=== PATIENT | male | born 1930 | race Caucasian/White ===

== ENCOUNTER → 2017-03-08 | Outpatient (CLI) | payer OTHER | END | disposition home or self-care (01) | LOC: PCVCCLINIC 13:37 | PROVIDERS: ATTEND Internal Medicine | DX: I48.2 Chronic atrial fibrillation (principal); I42.9 Cardiomyopathy, unspecified; E78.5 Hyperlipidemia, unspecified; J43.2 Centrilobular emphysema; G47.33 Obstructive sleep apnea (adult) (pediatric); E11.22 Type 2 diabetes mellitus with diabetic chronic kidney disease; I12.9 Hypertensive chronic kidney disease with stage 1 through stage 4 chronic kidney disease, or unspecified chronic kidney disease; N18.9 Chronic kidney disease, unspecified; I77.89 Other specified disorders of arteries and arterioles; Z86.14 Personal history of Methicillin resistant Staphylococcus aureus infection; Z85.51 Personal history of malignant neoplasm of bladder; Z89.422 Acquired absence of other left toe(s); Z87.891 Personal history of nicotine dependence; Z79.01 Long term (current) use of anticoagulants; Z79.4 Long term (current) use of insulin; Z88.8 Allergy status to other drugs, medicaments and biological substances | CPT/HCPCS: 80061; 93005; G0463 ==

== ENCOUNTER → 2017-09-13 | Outpatient (CLI) | payer OTHER | END | disposition home or self-care (01) | LOC: PCVCCLINIC 12:56 | DX: I48.2 Chronic atrial fibrillation (principal); I42.0 Dilated cardiomyopathy; E78.5 Hyperlipidemia, unspecified; I10 Essential (primary) hypertension; J43.2 Centrilobular emphysema; G47.33 Obstructive sleep apnea (adult) (pediatric); E11.9 Type 2 diabetes mellitus without complications; R94.31 Abnormal electrocardiogram [ECG] [EKG]; Z79.01 Long term (current) use of anticoagulants; Z87.891 Personal history of nicotine dependence; Z79.899 Other long term (current) drug therapy; Z79.4 Long term (current) use of insulin | CPT/HCPCS: 80061; 93005; G0463 ==

== ENCOUNTER → 2018-03-14 | Outpatient (CLI) | payer OTHER | END | disposition home or self-care (01) | LOC: PCVCCLINIC 14:04 | DX: I48.2 Chronic atrial fibrillation (principal); I42.0 Dilated cardiomyopathy; I10 Essential (primary) hypertension; J43.2 Centrilobular emphysema; G47.33 Obstructive sleep apnea (adult) (pediatric); E11.9 Type 2 diabetes mellitus without complications; E78.5 Hyperlipidemia, unspecified; Z79.01 Long term (current) use of anticoagulants; Z79.899 Other long term (current) drug therapy; Z87.891 Personal history of nicotine dependence; Z88.8 Allergy status to other drugs, medicaments and biological substances | CPT/HCPCS: 80061; 93005; G0463 ==

== ENCOUNTER → 2018-07-09 | Outpatient (CLI) | payer OTHER ==
--- NOTE | 2018-07-09 15:21 | PCVCIMAG ---
EXAM: BILATERAL LOWER EXTREMITY ARTERIAL DUPLEX INDICATION: Peripheral Arterial Disease. Leg pain. Nonhealing ulcer. FINDINGS: Right Leg: Common femoral and profunda femoral arteries are patent. Superficial femoral artery has increased velocity of 270 cm/s increased from 81 cm/s in the proximal superficial femoral artery consistent with 70-80% stenosis. Mid and distal superficial femoral artery and popliteal artery are patent. Occlusion throughout the posterior tibial artery. Occlusion of the distal anterior tibial artery. The peroneal artery is patent. Left Leg: Satisfactory arterial waveforms throughout the common/profunda/superficial femoral, popliteal, anterior tibial, peroneal, and posterior tibial arteries. No flow limiting stenosis seen. IMPRESSION: 75% stenosis proximal [place] superficial femoral artery. 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 Occlusion of the distal right anterior tibial artery. No flow limiting stenosis in the left lower extremity. LOC:[place] [id number]
== END | disposition home or self-care (01) ==
LOC: PCVCIMAG 12:47
PROVIDERS: ATTEND Emergency Medicine
DX: S81.809A Unspecified open wound, unspecified lower leg, initial encounter (principal); I73.9 Peripheral vascular disease, unspecified; E83.59 Other disorders of calcium metabolism; L97.929 Non-pressure chronic ulcer of unspecified part of left lower leg with unspecified severity; X58.XXXA Exposure to other specified factors, initial encounter; Y93.89 Activity, other specified; Y92.89 Other specified places as the place of occurrence of the external cause; Y99.8 Other external cause status
CPT/HCPCS: 93925

== ENCOUNTER → 2018-09-07 | Outpatient (CLI) | payer OTHER | END | disposition home or self-care (01) | LOC: PCVCCLINIC 14:15 | PROVIDERS: ATTEND Internal Medicine Cardiovascular Disease | DX: R53.83 Other fatigue (principal); I42.0 Dilated cardiomyopathy; E11.9 Type 2 diabetes mellitus without complications; J43.2 Centrilobular emphysema; Z88.8 Allergy status to other drugs, medicaments and biological substances; Z79.4 Long term (current) use of insulin; Z87.891 Personal history of nicotine dependence | CPT/HCPCS: 36415; 80061; 93005; G0463 ==

== ENCOUNTER → 2018-09-20 | Outpatient (CLI) | payer OTHER | LOC: PCVCCLINIC 14:29 | PROVIDERS: ATTEND Internal Medicine | DX: I48.91 Unspecified atrial fibrillation (principal); J44.9 Chronic obstructive pulmonary disease, unspecified; E11.9 Type 2 diabetes mellitus without complications; I11.0 Hypertensive heart disease with heart failure; I50.9 Heart failure, unspecified; M10.9 Gout, unspecified; E78.5 Hyperlipidemia, unspecified; G47.30 Sleep apnea, unspecified; I25.10 Atherosclerotic heart disease of native coronary artery without angina pectoris; Z87.891 Personal history of nicotine dependence; Z88.8 Allergy status to other drugs, medicaments and biological substances | CPT/HCPCS: 36415 ==

== ENCOUNTER → 2018-12-04 | Outpatient (CLI) | payer OTHER ==
--- NOTE | 2018-12-03 14:28 | PCVCIMAG ---
APPROVED REPORT Study performed: 12/03/2018 12:39:24 EXAM: Comprehensive 2D, Doppler, and color-flow Echocardiogram Patient Location: Echo lab Status: routine BSA: 2.20 HR: 81 bpmBP: 164/90 mmHg Rhythm: Atrial Fibrillation Other Information Study Quality: Adequate Technically limited study due to lung disease. Indications COPD Atrial Fibrillation aortic stenosis, dilated cardiomyopathy 2D Dimensions IVSd: 11.61 (7-11mm)LVOT Diam: 20.26 (18-24mm) LVDd: 49.12 mm PWd: 13.65 (7-11mm)Ascending Ao: 37.71 (22-36mm) LVDs: 42.74 (25-40mm) Left Atrium: 50.39 (27-40mm) Aortic Root: 40.52 mm LV Single Plane 4CH: 43.80 % LV Single Plane 2CH: 37.12 % Biplane EF: 41.3 % Volumes Left Atrial Volume (Systole) Single Plane 4CH: 122.71 mLSingle Plane 2CH: 111.43 mL LA ESV Index: 53.00 mL/m2 Aortic Valve AoV Peak Brenton.: 2.37 m/s AO Peak Gr.: 22.76 mmHgLVOT Max P.64 mmHg AO Mean Gr.: 12.42 mmHgLVOT Mean P.17 mmHg AO V2 Mean: 1.64 m/sLVOT Max V: 0.77 m/s AO V2 VTI: 40.61 cmLVOT Mean V: 0.50 m/s MAHAD (VTI): 1.12 pp1SRLD V1 VTI: 14.13 cm MAHAD Vmax: 1.04 cm2 SV (LVOT): 45.51 mL Pulmonary Valve PV Peak Brenton.: 0.75 m/sPV Peak Gr.: 2.29 mmHg Tricuspid Valve TR Peak Brenton.: 3.10 m/s TR Peak Gr.: 38.62 mmHg Left Ventricle The left ventricle is normal size. There is normal LV segmental wall motion. Mild concentric left ventricular hypertrophy. Left ventricular systolic function is mildly decreased. LVEF is 45-50%. This study is not technically sufficient to allow evaluation of the LV diastolic function due to atrial fibrillation. Right Ventricle The right ventricle is borderline dilated. The right ventricular systolic function is normal. Atria Left atrium is severely dilated. Right atrium is severely dilated. Aortic Valve The aortic valve is moderately sclerotic. Mild aortic regurgitation. There is mild to moderate valvular aortic stenosis. Calculated aortic valve area is 1.1 cm2 with maximum pressure gradient of 23 mmHg and mean pressure gradient of 12 mmHg. Mitral Valve Mild mitral annular calcification, calcified anterior mitral leaflet Mild mitral regurgitation. No evidence of mitral valve stenosis. Tricuspid Valve The tricuspid valve is normal in structure. Mild to moderate tricuspid regurgitation with PAP of 46 mmHg. Pulmonic Valve The pulmonary valve is normal in structure. There is no pulmonic valvular regurgitation. Great Vessels The aortic root is normal in size. 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 IVC is normal in size and collapses >50% with inspiration. Pericardium There is no pericardial effusion. There is no pleural effusion. <Conclusion> Left ventricular systolic function is mildly decreased. LVEF is 45-50%. Both atria are severely dilated. The aortic valve is moderately sclerotic, mildly stenotic. Mild aortic regurgitation. Calculated aortic valve area is 1.1 cm2 with maximum pressure gradient of 23 mmHg and mean pressure gradient of 12 mmHg. Mild mitral annular calcification, calcified anterior mitral leaflet. Mild mitral regurgitation. Mild to moderate tricuspid regurgitation with pulmonary artery pressure of 46 mmHg. 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 There is no pericardial effusion.
== END | disposition home or self-care (01) ==
LOC: PCVCIMAG 13:00
PROVIDERS: ATTEND Internal Medicine
DX: I08.3 Combined rheumatic disorders of mitral, aortic and tricuspid valves (principal); I48.91 Unspecified atrial fibrillation; J44.9 Chronic obstructive pulmonary disease, unspecified; I42.0 Dilated cardiomyopathy
CPT/HCPCS: 93306

== ENCOUNTER → 2019-04-30 | Outpatient (CLI) | payer OTHER | END | disposition home or self-care (01) | LOC: PCVCCLINIC 13:06 | PROVIDERS: ATTEND Internal Medicine | DX: I73.9 Peripheral vascular disease, unspecified (principal); I77.9 Disorder of arteries and arterioles, unspecified; I48.2 Chronic atrial fibrillation; I11.0 Hypertensive heart disease with heart failure; I50.32 Chronic diastolic (congestive) heart failure; I42.0 Dilated cardiomyopathy; E78.5 Hyperlipidemia, unspecified; J43.2 Centrilobular emphysema; E11.9 Type 2 diabetes mellitus without complications; Z88.8 Allergy status to other drugs, medicaments and biological substances | CPT/HCPCS: 36415; 80061; 93005; G0463 ==